=== PATIENT | female | born 2000 | race Caucasian/White ===

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

== ENCOUNTER 2021-03-19 17:20 | Emergency (ER) | payer MEDICAID ==
[~2021-03-19] VITALS: Ht 170.2 cm; Wt 66.7 kg
[2021-03-19 17:20] VITALS: BP_SYST 126
--- NOTE | 2021-03-19 17:20 | NUR ---
BROUGHT BACK TO BED #2 AND TRIAGED. REPORT GIVEN TO PERRI
--- NOTE | 2021-03-19 17:25 | NUR ---
PT BIB MOTHER FROM HOME C/O SEPTUM PIERCING THAT PT HAS BEEN UNABLE TO REMOVE FOR ABOUT 1 WEEK. PT WOULD LIKE IT REMOVED. PT IS AMBULATORY, AAOX4, V/S STABLE
--- NOTE | 2021-03-19 17:52 | NUR ---
ER DR MARTIN AT THE BEDSIDE FOR RING REMOVAL WITH RING CUTTER, PT TOLERATED WELL
[2021-03-19] MEDS ORDERED: IBUP-1969 PO (18:13)
[2021-03-19] MEDS ORDERED: CLIN300C12 PO (18:13)
[2021-03-19] MEDS: CLINDAMYCIN HCL 150 MG CAPSULE PO ONE (18:30)
--- NOTE | 2021-03-19 18:32 | NUR ---
Patient given written and verbal discharge instructions and verbalizes understanding. ER MD discussed with patient the results and treatment provided. Patient in stable condition. ID arm band removed. Rx of CLINDAMYCIN AND IBUPROFEN given. Patient educated on pain management and to follow up with PMD. Pain Scale 0/10. Opportunity for questions provided and answered. Medication side effect fact sheet provided.
== END 2021-03-19 18:31 | disposition home or self-care (01) ==
LOC: SED 17:20
DX: M79.5 Residual foreign body in soft tissue (principal); Z88.1 Allergy status to other antibiotic agents; Z79.899 Other long term (current) drug therapy
CPT/HCPCS: 99284

== ENCOUNTER 2021-11-04 16:45 | Emergency (ER) | payer MEDICAID ==
[~2021-11-04] VITALS: Ht 170.2 cm; Wt 68.0 kg
[~2021-11-04 16:45] MED LIST changes: +CLIN-142 PO; +IBUP-1969 PO
[2021-11-04 16:47] VITALS: BP_SYST 147
--- NOTE | 2021-11-04 16:49 | NUR ---
Patient to [facility] for evaluation. Report given to BERHANE RAYO
[2021-11-04] MEDS ORDERED: EPINEPHRINE HCL/PF 1 MG/ML AMP IM ONE (17:00)
--- NOTE | 2021-11-04 17:09 | NUR ---
ER Dr. Pan at bedside in [facility] examining patient.
[2021-11-04] MEDS ORDERED: EPIN0.3P3 IM (18:06)
--- NOTE | 2021-11-04 18:09 | NUR ---
Pt states she came from home c/o stomach pain, nausea, rapid heart rate after eating a poke bowl with tuna. This is a meal she eats regularly and has not had a reaction previously. Patient denies SOB, but says throat felt "funny" and skin began to react with a rash and hives. Will continue to monitor and provide care as ordered.
[2021-11-04 18:10] VITALS: BP_SYST 122
--- NOTE | 2021-11-04 18:10 | NUR ---
Patient given written and verbal discharge instructions and verbalizes understanding. ER Dr. Maxim CAIN discussed with patient the results and treatment provided. Patient in stable condition. ID arm band removed. Rx of epi-pen 2pk given. Patient educated on pain management and to follow up with PMD. Pain Scale 0/10. Opportunity for questions provided and answered. Medication side effect fact sheet provided.
== END 2021-11-04 18:10 | disposition home or self-care (01) ==
LOC: SED 16:45
DX: T78.2XXA Anaphylactic shock, unspecified, initial encounter (principal); Z88.1 Allergy status to other antibiotic agents; Z88.8 Allergy status to other drugs, medicaments and biological substances
CPT/HCPCS: 99283; 96372; J0171